=== PATIENT | female | born 1990 | race Caucasian/White ===

== ENCOUNTER 2024-10-27 15:32 | Emergency (ER) | payer OTHER ==
[~2024-10-27] VITALS: Ht 160 cm; Wt 90.7 kg
[2024-10-27] MEDS ORDERED: AMOX500 PO (15:49)
== END 2024-10-27 15:55 | disposition home or self-care (01) ==
LOC: ER 15:32
DX: H66.93 Otitis media, unspecified, bilateral (principal); J11.1 Influenza due to unidentified influenza virus with other respiratory manifestations
CPT/HCPCS: 99282

== ENCOUNTER 2024-11-23 10:26 | Emergency (ER) | payer OTHER ==
[~2024-11-23] VITALS: Ht 160 cm; Wt 108.9 kg
[~2024-11-23 10:26] MED LIST: AMOX500 PO
[2024-11-23 11:47] LABS: CORONAVIRUS COVID-19 AG Negative (NEGATIVE); INFLUENZA A AG Negative (NEGATIVE); INFLUENZA B AG Negative (NEGATIVE)
== END 2024-11-23 12:57 | disposition home or self-care (01) ==
LOC: ER 10:26
PROVIDERS: Physician Assistant
DX: J06.9 Acute upper respiratory infection, unspecified (principal); J40 Bronchitis, not specified as acute or chronic
CPT/HCPCS: 87428-QW

== ENCOUNTER 2024-12-13 12:28 | Emergency (ER) | payer OTHER ==
[~2024-12-13] VITALS: Ht 160 cm; Wt 67.1 kg
== END 2024-12-13 14:10 | disposition home or self-care (01) ==
LOC: ER 12:28
DX: J06.9 Acute upper respiratory infection, unspecified (principal); Z20.828 Contact with and (suspected) exposure to other viral communicable diseases
CPT/HCPCS: 99282

== ENCOUNTER 2025-02-14 09:34 | Emergency (ER) | payer OTHER ==
[~2025-02-14] VITALS: Ht 160 cm; Wt 130.2 kg
[2025-02-14 10:34] LABS: CORONAVIRUS COVID-19 AG Negative (NEGATIVE); INFLUENZA A AG Negative (NEGATIVE); INFLUENZA B AG Negative (NEGATIVE)
== END 2025-02-14 11:15 | disposition home or self-care (01) ==
LOC: ER 09:34
PROVIDERS: Student in an Organized Health Care Education/Training Program
DX: J06.9 Acute upper respiratory infection, unspecified (principal)
CPT/HCPCS: 87428-QW; 99283